=== PATIENT | male | born 1960 | race Caucasian/White ===

== ENCOUNTER 2017-05-27 08:03 | Day surgery (SDC) | payer MEDICAID ==
[~2017-05-27] VITALS: Ht 182.9 cm; Wt 122.5 kg
[2017-05-27] MEDS ORDERED: SODIUM BICARBONATE 100 MEQ in D5W 1000 ML IV SCH (08:30)
[2017-05-27] MEDS ORDERED: SODIUM CHLORIDE FLUSH PRN IV FLUSH (08:30)
--- NOTE | 2017-05-27 08:30 | PD.VS.PN ---
Pre-operative Note Pre-operative diagnosis: L LE tissue loss, PAD Planned procedure: Aortogram w/ L LE angiogram, possible endovascular intervention Interval History: Pt been feeling well and no complaints. Ready for procedure Labs: pending Blood: none needed Imaging: to be made in hybrid OR Orders: NPO Post-operative destination: DOCU Operative site marked: Yes Consent: Informed consent has been obtained from Jakob Alphonso. I have explained the procedure in detail and discussed the risks, benefits, and potential complications. All questions have been answered. Vishal Covington MD May 27, 2017 08:30
[2017-05-27 08:54] VITALS: BP 166/98; PULSE 78; RESP 16; TEMP 97.9; O2SAT 96
[2017-05-27] MEDS ORDERED: ASPI325T PO (08:54)
[2017-05-27] MEDS ORDERED: SODIUM CHLORIDE FLUSH BID IV FLUSH SCH (09:00)
[2017-05-27 09:03] LABS: AUTOMATED NEUTROPHIL # 6.2 TH/MM3 (1.8-7.7); BASOPHIL # 0.1 TH/MM3 (0-0.2); BASOPHIL % 0.9 % (0.0-2.0); EOSINOPHIL # 0.3 TH/MM3 (0-0.4); EOSINOPHIL % 3.6 % (0.0-4.0); HEMATOCRIT 43.5 % (39.0-51.0); HEMO FLAGS DIFF FINAL; LYMPHOCYTE # 2.1 TH/MM3 (1.0-4.8); MEAN CELL VOLUME 84.5 FL (80.0-100.0); MEAN CORPUSCULAR HEMOGLOBIN 28.2 PG (27.0-34.0); MEAN CORPUSCULAR HGB CONC 33.4 % (32.0-36.0); NEUT % 66.5 % (16.0-70.0); PLATELET COUNT 287 TH/MM3 (150-450); RED BLOOD COUNT 5.14 MIL/MM3 (4.50-5.90); WHITE BLOOD COUNT 9.3 TH/MM3 (4.0-11.0)
[2017-05-27 09:31] LABS: BICARBONATE 25.6 MEQ/L (21.0-32.0); POTASSIUM 4.4 MEQ/L (3.5-5.1)
[2017-05-27] MEDS ORDERED: MIDAZOLAM HCL 5 MG/ML VIAL (1 ML) ONE (10:44)
[2017-05-27] MEDS ORDERED: HEPARIN SODIUM - IV 10,000 UNITS/10 ML VIAL ONE (10:44)
[2017-05-27] MEDS ORDERED: IOHEXOL 300 MG/ML 100 ML BTL (for Rad CT) OTHER ONE (10:50)
--- NOTE | 2017-05-27 11:32 | HHI.PR ---
Immediate Post Op Note Procedure Date: May 27, 2017 Pre Op Diagnosis: L LE ischemic tissue loss Post Op Diagnosis: PAD, L LE tissue loss Surgeon: Vishal Covington Corporate Travel Coordinator(s): none Procedure: Aortogram w/ L LE angiogram Findings: occluded L SFA stents profunda collaterals reconstitute peroneal and AT and very distal PT Additional Information: needs L TYPEWRITER [employer]CH[employer]IC-peroneal bypass Complications: none apparent Specimen(s) removed: none Estimated blood loss: 5mL Anesthesia: MAC Drains: None Patient to: Other (DOCU) Patient Condition: Good Date/Time of Procedure: SEE SURGICAL CARE RECORD Vishal Covington MD May 27, 2017 11:32
--- NOTE | 2017-05-28 21:59 | MP ---
cc: PENELOPE COVINGTON MD DATE OF SURGERY 05/28/17 PREOPERATIVE DIAGNOSIS Left lower extremity ischemic tissue loss. POSTOPERATIVE DIAGNOSIS Left lower extremity ischemic tissue loss. PROCEDURE Aortogram with left lower extremity angiogram. MEDICATIONS Sebastien Covington MD ANESTHESIA Local with sedation INDICATIONS Mr. Werner is a 56-year-old gentleman with the above lower extremity tissue loss. He has no palpable pedal pulses, is taken to the operating room for angiographic evaluation. There is no prior catheter based imaging available for my review. PROCEDURE IN DETAIL Informed consent was obtained from the patient and he was taken to the operating room, placed supine on the operating table. Appropriate time-out was taken to ensure the patient's identity, the operative site and planned procedure. Antibiotics were not necessary as this is a clean procedure without any planned implantation of any foreign object. Everyone in the room agreed with the time-out and we proceeded. His bilateral groins were prepped and draped and right groin was anesthetized with 1% lidocaine. A 21 gauge micropuncture needle was used to access the right common femoral artery. This was exchanged using Seldinger technique for a micropuncture sheath in which a 0.__5 Glidewire was introduced. Micropuncture sheath was exchanged for a 4-Nepali sheath and the VCF catheter was placed over the wire into the sheath and aortogram and pelvic arteriogram was obtained. The Glidewire was then used to navigate down to the left common femoral artery. The VCF catheter was advanced over this and left lower extremity arteriogram was obtained. The wire and catheter were removed. The sheath was flushed. It will be removed in the recovery room. There were no complications. I was present and scrubbed for the entire procedure. INTERPRETATION The patient has patent renal arteries, patent infrarenal, aorta, common iliac arteries, external iliac arteries and hypogastric arteries bilaterally. None of these arteries have any hemodynamically significant stenoses. The left common femoral artery and profunda are patent. The SFA is diminutive proximally and then occludes distally. There is evidence of occluded stents. Profunda based collaterals give rise to the bifurcation takeoff between the tibioperoneal trunk and anterior tibial arteries. The additional collaterals give rise to a very distal posterior tibial artery. MD ETTA Menezes/ /11:39 AM /9:56 PM
== END 2017-05-27 15:12 | disposition home or self-care (01) ==
LOC: HCVO 08:03 → HDIC 08:03 → HCVO 15:12
PROVIDERS: ATTEND Surgery
DX: T82.598A Other mechanical complication of other cardiac and vascular devices and implants, initial encounter (principal); I73.9 Peripheral vascular disease, unspecified; Z01.818 Encounter for other preprocedural examination
CPT/HCPCS: 75625; 75710; 80048; 85025; C1769; J1644; J2250; J3010; Q9967